=== PATIENT | female | born 1975 | race Caucasian/White ===

== ENCOUNTER 2020-12-04 22:13 | Emergency (ER) | payer OTHER ==
[~2020-12-04] VITALS: Ht 175.3 cm; Wt 68.1 kg
[~2020-12-04 22:13] MED LIST: Hydrocodone/Acetaminophen PO; ONDA4TAB10 SL; VENTOLIN HFA18 GM IH
--- NOTE | 2020-12-04 22:32 | PHYS DOC ---
Past Medical History Past Medical History: Asthma Additional Past Medical Histor: Strauss Mosaic Syndrome, opiate addiction Past Surgical History: Cholecystectomy, Smoking Status: Former Smoker Alcohol Use: None Drug Use: None General Adult EDM: Chief Complaint: DENTAL PROBLEM HPI: HPI: Patient is a 45 year old [f__sex] who presents with [] Review of Systems: Review of Systems: Fourteen body systems of review of systems have been reviewed. See HPI for pertinent positives and negative responses, other davies all other systems are negative, non-pertinent or non-contributory Heart Score: C/O Chest Pain: No Risk Factors: Risk Factors: DM, Current or recent (<one month) smoker, HTN, HLP, family hi story of CAD, obesity. Risk Scores: Score 0 - 3: 2.5% MACE over next 6 weeks - Discharge Home Score 4 - 6: 20.3% MACE over next 6 weeks - Admit for Clinical Observation Score 7 - 10: 72.7% MACE over next 6 weeks - Early Invasive Strategies Allergies: Allergies: Allergies Coded Allergies Type Severity Reaction Last Updated Verified Sulfa (Sulfonamide Antibiotics) Allergy Severe 12/04/20 No Penicillins Allergy Intermediate rash 12/04/20 No prochlorperazine Allergy Intermediate dystonic 12/04/20 No Physical Exam: PE: Constitutional: Well developed, well nourished, no acute distress, non-toxic appearance. HENT: Normocephalic, atraumatic, bilateral external ears normal, oropharynx moist, no oral exudates, nose normal. Eyes: PERRLA, EOMI, conjunctiva normal, no discharge. Neck: Normal range of motion, no tenderness, supple, no stridor. Cardiovascular: Heart rate regular per monitor Lungs & Thorax: No respiratory distress or accessory muscle use, bilateral chest rise Abdomen: Abdomen soft, non-tender, bowel sounds present in all quadrants, no guarding or rebound, nonacute abdomen. Skin: Warm, dry, no erythema, no rash. Back: No tenderness, no CVA tenderness. Extremities: No tenderness, no cyanosis, no clubbing, ROM intact, no edema. Neurologic: Alert and oriented X 3, grossly normal motor & sensory function, no focal deficits noted. Psychologic: Affect normal, judgement normal, mood normal. Current Patient Data: Vital Signs: Vital Signs Date Time Temp Pulse Resp B/P (MAP) Pulse Ox O2 Delivery O2 Flow Rate FiO2 12/04/20 22:15 98.0 65 20 153/95 (114) 98 Room Air 98.0 Vital Signs Date Time Temp Pulse Resp B/P (MAP) Pulse Ox O2 Delivery O2 Flow Rate FiO2 12/04/20 22:15 98.0 65 20 153/95 (114) 98 Room Air 98.0 EKG: EKG: [] Radiology/Procedures: Radiology/Procedures: [] Course & Med Decision Making: Course & Med Decision Making Pertinent Labs and Imaging studies reviewed. (See chart for details) [] Dragon Disclaimer: Dragon Disclaimer: This electronic medical record was generated, in whole or in part, using a voice recognition dictation system. Departure Departure Impression: Primary Impression: Pain, dental Disposition: HOME / SELF CARE / HOMELESS Condition: IMPROVED Referrals: RATNA MCDONOUGH (PCP) Additional Instructions: You were seen for dental pain. There does not appear to be any infection at this time. Take Ibuprofen (600-800mg) and Tylenol (500-650mg) alternating every 4-6 hours to help with inflammation and pain while you contact a dentist for further care. You should return to the ED if you develop worsening pain, fever > 101, swelling, redness, or any other new or concerning symptoms. Unfortunat branden, your pain is not likely to improve without seeing a dentist for further evaluation and treatment of your poor dentition and dental caries. Please follow-up with your outpatient dentist this upcoming for definitive intervention as previously scheduled Scripts Hydrocodone Bit/Acetaminophen (HYDROCODONE-APAP 7.5-325 ) 1 Tab Tablet 1 TAB PO PRN Q6HRS PRN for PAIN, #10 TAB 0 Refills Prov: MALACHI BLACKWELL DO 12/04/20 MALACHI BLACKWELL DO December 04, 2020 22:32
[2020-12-04 22:47] VITALS: BP 142/84
[2020-12-04] MEDS ORDERED: HYDR-2765 PO (22:48)
[2020-12-04] MEDS ORDERED: HYDROcodone/APAP 10/325 1 TAB TABLET PO ONE (23:00)
== END 2020-12-04 23:05 | disposition home or self-care (01) ==
LOC: ER 22:13
DX: K08.89 Other specified disorders of teeth and supporting structures (principal); J45.909 Unspecified asthma, uncomplicated; Z87.891 Personal history of nicotine dependence; Z88.0 Allergy status to penicillin; Z88.2 Allergy status to sulfonamides; Z88.8 Allergy status to other drugs, medicaments and biological substances
CPT/HCPCS: 99283